=== PATIENT | female | born 1965 | race Two or more races ===

== ENCOUNTER 2024-03-20 00:40 | Emergency (ER) | payer SELFPAY ==
[2024-03-20 00:53] VITALS: BP 178/83; PULSE 81; RESP 18; TEMP 37.1; O2SAT 97
--- NOTE | 2024-03-20 00:54 | EKG_ITS ---
[facility] Test Date: 2024-03-20 Pat Name: ELLI MILLER Department: Room: - Gender: Female [employer] Operator: : 1965 Requested By: Elli Basilio Order Number: [id number] Reading MD: Elli Basilio Measurements Intervals [place] Rate: 78 P: 47 HI: 147 QRS: 14 QRSD: 106 T: -10 QT: 355 QTc: 406 Interpretive Statements SINUS RHYTHM POSSIBLE ANTERIOR MYOCARDIAL INFARCTION , OF INDETERMINATE AGE [30 ms Q WAVE IN V3/V4, OR R < 0.2 mV IN V4] INFERIOR MYOCARDIAL INFARCTION , OF INDETERMINATE AGE [40+ ms Q WAVE AND/OR ST/T ABNORMALITY IN II/aVF] Compared to ECG 05/11/2023 17:02:14 Myocardial infarct finding now present /[id number]/[id number].pdf
--- NOTE | 2024-03-20 01:01 | XR_ITS ---
Examination: PA lateral chest 2 views TECHNIQUE: Upright PA and lateral chest 2 views Exam date and time: March 20, 2024 at 0105 hours Comparison January 28, 2023 INDICATIONS: Chest pain today FINDINGS: Mild prominence left ventricle No pneumonia or pulmonary edema The osseous structures are intact IMPRESSION: No pneumonia or pulmonary edema.
--- NOTE | 2024-03-20 01:02 | PD.EDRME ---
Rapid Medical Screening Exam RME Arrival date/time: 03/20/24 00:40 59-year-old female past medical history of hypertension presents emergency department complaining of chest pain that radiates to right shoulder and arm that started last night. Chief Complaint: Chest Pain Vital signs: Vital Signs Temperature 98.8 F 03/20/24 00:53 Pulse Rate 81 03/20/24 00:53 Respiratory Rate 18 03/20/24 00:53 Blood Pressure 178/83 H 03/20/24 00:53 Pulse Oximetry (%) 97 03/20/24 00:53 Oxygen Delivery Method Room Air 03/20/24 00:53 Vital signs reviewed by provider: Yes
[2024-03-20 01:52] LABS: Basophils # (Auto) 0.1 Thou/mm3 (0.0-0.2); Basophils % (Auto) 1 % (0-2.5); Eosinophils # (Auto) 0.2 Thou/mm3 (0.0-0.5); Eosinophils % (Auto) 2 % (0-10); Hematocrit 37.6 % (36.0-46.0); Hemoglobin 12.5 g/dL (12.0-16.0); Immature Granulocytes % (Auto) 0 % (0-0); Immature Granulocytes Auto 0.01 Thou/mm3 (0.00-0.00); Lymphocytes # (Auto) 2.4 Thou/mm3 (1.0-4.8); Lymphocytes % (Auto) 26 % (10-50); Mean Corpuscular HGB Conc 33.2 g/dl (31.0-37.0); Mean Corpuscular Hemoglobin 30.3 pg (25.0-35.0); Mean Corpuscular Volume 91 fL (80-100); Monocytes # (Auto) 0.7 Thou/mm3 (0.0-0.8); Monocytes % (Auto) 7 % (0-12); Neutrophils # (Auto) 6.2 Thou/mm3 (1.8-7.7); Neutrophils % (Auto) 65 % (37-80); Nucleated Red Blood Cell % 0 /100 WBC (0); Platelet Count 319 Thou/mm3 (140-440); RDW Standard Deviation 42.3 fL (36.4-46.3); Red Blood Count 4.12 Miln/mm3 (4.00-5.20); White Blood Count 9.5 Thou/mm3 (3.6-11.0)
[2024-03-20 01:57] LABS: B-Type Natriuretic Peptide 27 pg/mL (0-100)
[2024-03-20 01:58] LABS: Alanine Aminotransferase 63 U/L (10-49); Albumin, Serum 4.4 gm/dL (3.5-5.0); Albumin/Globulin Ratio 1.4 (1.2-2.2); Alkaline Phosphatase 65 U/L (46-116); Anion Gap 8 (7-16); Aspartate Amino Transferase 136 U/L (0-34); BUN/Creatinine Ratio 20 Ratio (12-20); Bilirubin,Total 0.5 mg/dL (0.3-1.2); Blood Urea Nitrogen 16 mg/dL (9-23); Calcium 10.3 mg/dL (8.3-10.6); Calcium (Corrected) 10.3 mg/dL (8.5-10.1); Chloride 105 mMol/L (98-107); Creatinine (Component) 0.8 mg/dL (0.6-1.3); Globulin 3.2 gm/dL (2.3-3.5); Glucose 121 mg/dL (74-106); Magnesium 2.1 mg/dL (1.6-2.6); Osmolality,Calculated 281 (275-295); Potassium 3.6 mMol/L (3.4-5.1); Sodium 140 mMol/L (136-145); Total Protein 7.6 gm/dL (5.7-8.2); Troponin I < 0.002 ng/mL (0.0-0.045); eGFR > 60 See Note
[2024-03-20 01:59] LABS: Partial Thromboplastin Time 24.9 Seconds (22.0-36.0); Prothrombin Time 10.9 Seconds (9.0-12.2)
[2024-03-20 03:34] LABS: Collection Type, Urine Clean Catch; RBC,Urine 0 /hpf (0-3)
[2024-03-20 04:00] LABS: Amphetamine/Methamp Scrn,U Negative (Negative); Barbiturate Screen,Urine Negative (Negative); Benzodiazepines Screen,Urine Negative (Negative); Benzoylecgonine Screen, Ur Negative (Negative); Fentanyl Screen,Urine Negative (Negative); Opiate Screen,Urine Negative (Negative); THC Screen,Urine Negative (Negative)
[2024-03-20 04:30] LABS: Bilirubin,Urine Negative (Negative); Blood,Urine Negative (Negative); Clarity,Urine Turbid (Clear/Hazy); Color,Urine Yellow (Lt Yel-Yel); Glucose, Urine Negative (Negative); Ketones,Urine Negative (Negative); Leukocyte Esterase,Urine Positive (Negative); Nitrite,Urine Negative (Negative); PH,Urine 5.5 (5.0-7.0); Protein,Urine Trace (Neg - Trace); Squamous Epithelial Cell,Urine 5 /hpf (0-5); Urobilinogen,Urine Negative mg/dL (0.0-1.0); WBC,Urine 20 /hpf (0-5)
[2024-03-20 06:06] VITALS: BP 141/90; PULSE 69; RESP 17; TEMP 36.9; O2SAT 97
[2024-03-20 09:16] LABS: Troponin I < 0.002 ng/mL (0.0-0.045)
--- NOTE | 2024-03-20 09:56 | PD.EDCHEST ---
ED Chest Pain RME/HPI General Chief Complaint: Chest Pain Stated Complaint: chest pain Time Seen by Provider: 03/20/24 09:41 Arrival date/time: 03/20/24 00:40 RME / HPI RME / HPI narrative: 03/20/24 00:40 59-year-old female past medical history of hypertension presents emergency department complaining of chest pain that radiates to right shoulder and arm that started last night. DR. ORTEGA MAIN ED EVALUATION 59 year old female with history of hypertension and known cholelithiasis presents to the ED for evaluation of chest and epigastric pain beginning last night at 8PM and worsening at 11PM after getting up to use the restroom. Described as sharp burning in sensation that radiates to her back, rating as moderate. Reportedly at 11PM last night she took a warm shower in attempts to alleviate the pain however had no relief. Patient mentioned for dinner she had a chicken bake from [employer]. Denies fevers, chills, sweats, cough, shortness of breath, vomiting, diarrhea, constipation, or urinary symptoms. Related Data Home Medications ?Medication ?Instructions ?Recorded ?Confirmed No Known Home Medications 07/09/17 07/09/17 Previous Rx's ?Medication ?Instructions ?Recorded hydrocodone 5 mg-acetaminophen 325 1 tab PO Q6H PRN pain #7 tabs 07/09/17 mg tablet ([place]) Allergies Allergy/AdvReac Type Severity Reaction Status Date / Time No Known Allergies Allergy Verified 05/11/23 15:00 Review of Systems Review of Systems Narrative Review of Systems: Gen: No fever, no chills, no weight loss EYES: No discharge, no visual changes, no pain HEENT: No ear pain, no congestion, no sore throat PULM: no shortness of breath, no cough, no congestion CV: + chest pain, no palpitations, no chest tightness GI: No nausea, no vomiting, no diarrhea, + pain, no constipation : No frequency, no urgency,? no dysuria Musc/skel: No joint pain, + back pain Skin: No rash, no ecchymosis, no lesions Neuro: No weakness, no headache Past Medical History Past Medical History CARDIAC: Positive Hypertension; Negative Congestive Heart Failure RESPIRATORY: Negative Chronic Obstructive Pulmonary Disease (COPD) GENITOURINARY: Negative Renal Disease ENDOCRINE: Negative Diabetes Mellitus Type 1 or Diabetes Mellitus Type 2 Social History SMOKING STATUS: Never smoker ED Exam Narrative Physical exam: GENERAL APPEARANCE: AxOx4, no obvious distress, nontoxic appearing HEENT: NC, AT. MMM. EOMI, clear conjunctiva, oropharynx clear. NECK: Supple without lymphadenopathy. No stiffness or restricted ROM. HEART: Normal rate and regular rhythm, normal S1/S1, no m/r/g LUNGS: CTAB, moving air well. No crackles or wheezes are heard. ABDOMEN: Soft, nontender, nondistended with good bowel sounds heard. BACK: No midline C/T/L spine pain or deformity, No CVAT, no obvious deformity. EXTREMITIES: Without cyanosis, clubbing or edema. MUSCULOSKELETAL: FROM of all major joints, no chest tenderness NEUROLOGICAL: Grossly nonfocal. Alert and oriented, moving all 4 extremities. CN not formally tested but appear grossly intact. Skin: Warm and dry without any rash. Course Course Course Narrative: chest xray ordered to help determine etiology of chest pain. Quality Measures none Orders Category Date Time Status EKG (ED ONLY) *Do not use* NOW Care 03/20/24 00:54 Completed EKG (ED Only) Stat Exams 03/20/24 00:54 Draft XR chest 2V Stat Exams 03/20/24 01:01 Completed B-Type Natriuretic Peptide Stat Lab 03/20/24 01:13 Completed CBC Stat Lab 03/20/24 01:13 Completed Comprehensive Metabolic Panel Stat Lab 03/20/24 01:13 Completed Drug Screen,Urine Stat Lab 03/20/24 03:19 Completed Magnesium Stat Lab 03/20/24 01:13 Completed Partial Thromboplastin Time Stat Lab 03/20/24 01:13 Completed Prothrombin Time with INR Stat Lab 03/20/24 01:13 Completed Troponin I Stat Lab 03/20/24 01:13 Completed Troponin I Stat Lab 03/20/24 08:01 Completed Urinalysis Stat Lab 03/20/24 03:19 Completed Reevaluation(s) Reevaluation #1: Patient remains clinically stable throughout the emergency department visit. We reviewed all the results, analysis, and treatment plans. Patient is amenable to discharge. Strict return precautions were outlined. Patient was discharged in stable condition. Time: 09:55 Vital Signs Vital signs: Vital Signs Temperature 98.8 F 03/20/24 00:53 Pulse Rate 81 03/20/24 00:53 Respiratory Rate 18 03/20/24 00:53 Blood Pressure 178/83 H 03/20/24 00:53 Pulse Oximetry (%) 97 03/20/24 00:53 Oxygen Delivery Method Room Air 03/20/24 00:53 Pulse ox is 97% on room air which is adequate. Chest Pain MDM Narrative MDM Narrative:: Ashley Aguiar am scribing for and in the presence of Dr. Ortega. Patient data External records reviewed:: [facility] previous records (I reviewe ED visit on 05/12/2023) Clinical information provided by:: patient Social determinants that could affect healthcare access:: none Patient has the following chronic illnesses:: HTN, cholelithiasis How is presenting disease/condition affected by chronic disease/condition?: exacerbated by Evaluation data The following diagnostics were reviewed and interpreted by me:: lab results, radiology exam(s) and EKG tracing(s) (NSR, rate 78, normal axis, normal intervals, no acute ST or T-wave changes, no STEMI. ) Lab and/or radiology exams considered but not ordered:: None Interpretation Summary: Ordering Physician: Erin VALLE)[place] Date of Service: 03/20/24 Procedure(s): XR chest 2V Accession Number(s): [id number] cc: Xavier Alejandra PA-C; Gino Blankenship MD; Erin VALLE)[place]~ Examination: PA lateral chest 2 views TECHNIQUE: Upright PA and lateral chest 2 views Exam date and time: March 20, 2024 at 0105 hours Comparison January 28, 2023 INDICATIONS: Chest pain today FINDINGS: Mild prominence left ventricle No pneumonia or pulmonary edema The osseous structures are intact IMPRESSION: No pneumonia or pulmonary edema. Dictated By:Gino Blankenship MD Signed By:<Electronically signed by Gino Blankenship MD in [place]>03/20/24 0747 Medications / Prescriptions Medications or Prescriptions considered but not ordered:: None Medication administrations:: None Consultations Consultation(s) initiated? (list below): No Diagnosis Chest Pain Differential Diagnosis: pneumothorax, stable angina, atypical chest pain, st elevation myocardial infarction, costochondritis, chest pain, biliary colic and other (Gastritis ) Most likely diagnosis given after review of the tests above:: chest pain GERD Admission Indicated Admission indicated?: not indicated Admission Request Was there a request for admission?: No Disposition Plan Disposition Plan: Discharge Discharge Attestation Discharge Attestation: The patient and all family members were given an opportunity to ask questions and understood the discharge instructions. Discharge instructions specifically effects, indications for sooner follow up or return to the emergency department, and the expected course of current diagnosis. Patient condition: Stable Discharge Plan Plan Patient Disposition: HOME (Self Care) Prescriptions/Referrals Prescriptions/Med Rec: No Action No Known Home Medications hydrocodone-acetaminophen [[place]] 5-325 mg tablet 1 tab PO Q6H MDD 4 PRN (Reason: pain) Qty: 7 0RF Referrals: Xavier Alejandra PA-C [Primary Care Provider] - In 1 week Problem List Clinical Impression: Chest pain, GERD (gastroesophageal reflux disease) Patient/Caregiver Discharge Instructions Education Materials: ED Chest Pain, Uncertain Cause, ED GERD (Adult) Additional Instructions: Puede andrea famotidina (Pepcid) de venta tanmay, 20 mg dos veces al d?a juliano los pr?ximos 3 d?as. Mientras tanto, lleve gregor dieta connie y equilibrada, evitando los alimentos grasosos y picantes. Tricia un seguimiento con cochran m?dico de atenci?n primaria en 3 a 5 d?as si los s?ntomas no mejoran. Puede regresar al departamento de emergencias antes si los s?ntomas empeoran o si nota alg?n problema nuevo que le preocupe. Print Language: Macedonian Stand Alone Forms: Gloria Award Info., Patient Portal Info Letter
[2024-03-20 10:02] VITALS: BP 139/65; PULSE 69; RESP 18; TEMP 36.6; O2SAT 97
== END 2024-03-20 10:03 | disposition home or self-care (01) ==
PROVIDERS: Nurse Practitioner Primary Care; Emergency Provider Emergency Medicine; PCP Physician Assistant
DX: R07.9 Chest pain, unspecified (principal); K21.9 Gastro-esophageal reflux disease without esophagitis; I10 Essential (primary) hypertension
CPT/HCPCS: 36415; 71046; 80053; 80307; 81001; 83735; 83880; 84484; 85025; 85610; 85730; 93005; 99283